=== PATIENT | female | born 2000 | race African-American/Black ===

== ENCOUNTER 2018-08-29 08:38 | Emergency (ER) | payer SELFPAY ==
[~2018-08-29] VITALS: Ht 149.9 cm; Wt 72.6 kg
[2018-08-29] MEDS ORDERED: ACETAMINOPHEN 500 MG TABLET PO ONE (09:00)
--- NOTE | 2018-08-29 10:02 | PHYS DOC ---
Past Medical History Past Medical History: Asthma, Migraines Past Surgical History: No Surgical History Alcohol Use: None Drug Use: None Adult General Chief Complaint Chief Complaint: FLU SYMPTOM HPI HPI Patient is a 17 year old AA female who presents to the emergency room with complaints of generalized body aches, sore throat, and cough with posttussive emesis intermittently for the last week. Patient states that last night she vomited 3 times after coughing. Patient denies any abdominal pain, back pain, dysuria, increased urinary frequency, hematuria, or ear pain. Patient states that she has had some thick white vaginal discharge and vaginal itching after using a new soap. She also reports concerns of a sexually transmitted infection. Review of Systems Review of Systems Constitutional: Reports fever, body aches, fatigue 1 week Eyes: Denies change in visual acuity, redness, or eye pain [] HENT: Reports nasal congestion and sore throat, denies ear pain Respiratory: Denies shortness of breath or wheezing; reports dry cough with posttussive emesis Cardiovascular: No additional information not addressed in HPI [] GI: Denies abdominal pain, or diarrhea; reports posttussive emesis 3 last night [] : Denies dysuria or hematuria; reports vaginal itching and irritation with thick white discharge after using a new soap recently [] Musculoskeletal: Reports body aches Integument: Denies rash or skin lesions [] Neurologic: Denies headache, focal weakness or sensory changes [] Current Medications Current Medications Current Medications Medications (Trade) Dose Ordered Sig/Juanito Start Time Stop Time Status Last Admin Dose Admin Acetaminophen (Tylenol) 1,000 mg 1X ONCE 08/29/18 09:00 08/29/18 09:01 DC 08/29/18 09:06 1,000 MG Azithromycin (Zithromax) 1,000 mg 1X ONCE 08/29/18 10:15 08/29/18 10:16 DC 08/29/18 10:36 1,000 MG Ceftriaxone Sodium (Rocephin Im) 250 mg 1X ONCE 08/29/18 10:15 08/29/18 10:16 DC 08/29/18 10:38 250 MG Sodium Chloride 1,000 ml @ 1,000 mls/hr 1X ONCE 08/29/18 10:15 08/29/18 11:14 DC 08/29/18 10:05 1,000 MLS/HR Allergies Allergies Allergies Coded Allergies Type Severity Reaction Last Updated Verified No Known Drug Allergies 03/10/15 No Physical Exam Physical Exam Constitutional: Well developed, well nourished, no acute distress, non-toxic appearance. [] HENT: Normocephalic, atraumatic, bilateral external ears normal, bilateral TMs normal, mild erythema of posterior pharynx, oropharynx moist, no oral exudates, nose normal. [] Eyes: PERRLA, conjunctiva normal, no discharge. [] Neck: Normal range of motion, no tenderness, supple, no stridor. [] Cardiovascular:Heart rate regular rhythm, no murmur [] Lungs & Thorax: Bilateral breath sounds clear to auscultation [] Pelvic Exam: Electrical Manager present Samantha LOZANO Abdomen: Nontender External Genitalia: Normal Skin Speculum: Normal vaginal mucosa, thick white vaginal discharge, non- friable OS, normal cervical discharge Bimanual: No adnexal masses or tenderness, No CMT Skin: Warm, dry, no erythema, no rash. [] Extremities: No cyanosis, ROM intact, no edema. [] Neurologic: Alert and oriented X 3, normal motor function, normal sensory function, no focal deficits noted. [] Psychologic: Affect normal, judgement normal, mood normal. [] Current Patient Data Vital Signs Vital Signs Date Time Temp Pulse Resp B/P (MAP) Pulse Ox O2 Delivery O2 Flow Rate FiO2 08/29/18 10:30 98 119/77 (91) 99 Room Air 08/29/18 08:43 98.8 18 98.8 Lab Values Laboratory Tests Test 08/29/18 08:54 08/29/18 10:00 Group A Streptococcus Rapid Negative (NEGATIVE) White Blood Count 9.1 x10^3/uL (4.0-11.0) Red Blood Count 5.18 x10^6/uL (3.50-5.40) Hemoglobin 15.2 g/dL (12.0-15.5) Hematocrit 45.2 % (36.0-47.0) Mean Corpuscular Volume 87 fL (79-100) Mean Corpuscular Hemoglobin 29 pg (25-35) Mean Corpuscular Hemoglobin Concent 34 g/dL (31-37) Red Cell Distribution Width 13.8 % (11.5-14.5) Platelet Count 297 x10^3/uL (140-400) Neutrophils (%) (Auto) 66 % (31-73) Lymphocytes (%) (Auto) 26 % (24-48) Monocytes (%) (Auto) 6 % (0-9) Eosinophils (%) (Auto) 2 % (0-3) Basophils (%) (Auto) 1 % (0-3) Neutrophils # (Auto) 6.0 x10^3uL (1.8-7.7) Lymphocytes # (Auto) 2.4 x10^3/uL (1.0-4.8) Monocytes # (Auto) 0.5 x10^3/uL (0.0-1.1) Eosinophils # (Auto) 0.1 x10^3/uL (0.0-0.7) Basophils # (Auto) 0.0 x10^3/uL (0.0-0.2) Sodium Level 140 mmol/L (136-145) Potassium Level 3.7 mmol/L (3.5-5.1) Chloride Level 102 mmol/L (98-107) Carbon Dioxide Level 25 mmol/L (21-32) Anion Gap 13 (6-14) Blood Urea Nitrogen 9 mg/dL (7-20) Creatinine 0.9 mg/dL (0.6-1.0) Estimated GFR (Cockcroft-Gault) 97.6 Glucose Level 92 mg/dL (70-99) Calcium Level 9.1 mg/dL (8.5-10.1) Laboratory Tests 08/29/18 10:00 Laboratory Tests 08/29/18 10:00 Microbiology 08/29/18 Wet Prep - Final, Complete EKG EKG [] Radiology/Procedures Radiology/Procedures [] Course & Med Decision Making Course & Med Decision Making Pertinent Labs and Imaging studies reviewed. (See chart for details) Dx: bacterial vaginosis, vomiting, URI Patient was treated prophylactically with 250 mg of IM Rocephin, and 1 g of PO Zithromax. Patient was instructed to avoid having intercourse until the results of gonorrhea and chlamydia testing were available, patient was notified that these results would not be available for 48 hours. If one or both of these tests is positive, patient needs to refrain from intercourse for approximately 2 weeks following the treatment of any current partners. Prescription written for flagyl. Patient verbalized an understanding of home care, medications, follow-up, and return to ED instructions and was in agreement with the plan of care. [] Dragon Disclaimer Dragon Disclaimer This electronic medical record was generated, in whole or in part, using a voice recognition dictation system. Departure Departure Impression: Primary Impression: Vomiting Additional Impressions: Bacterial vaginosis URI with cough and congestion Disposition: 01 HOME, SELF-CARE Condition: STABLE Referrals: NO PCP (PCP) Patient Instructions: Bacterial Vaginosis, [id number], Nausea and Vomiting, [id number], Upper Respiratory Infection, Adult, [id number] Additional Instructions: Fill the prescription and use as directed. Clear fluids for 24 hours then advance to bland foods such as bananas, rice, toast, and applesauce. No intercourse until you know the results of your STD testing, you were treated prophylactically with zithromax and rocephin in the ER. If one or both of these tests are positive you need to refrain from intercourse for two weeks following the treatment of any current partners. Follow up with your PCP as needed, return to the ER if symptoms worsen. Scripts Metronidazole (FLAGYL) 500 Mg Tablet 1 TAB PO BID for 7 Days, #14 TAB 0 Refills Prov: CHARLI LEVY APRN 08/29/18 Problem Qualifiers Primary Impression: Vomiting Vomiting type: unspecified Vomiting Intractability: non-intractable Nausea presence: without nausea Qualified Codes: R11.11 - Vomiting without nausea CHARLI LEVY APRN Aug 29, 2018 10:02
[2018-08-29] MEDS ORDERED: AZITHROMYCIN 250 MG TABLET. PO ONE (10:15)
[2018-08-29] MEDS ORDERED: IV NORMAL SALINE 1000ML BAG 1,000 ML IV ONE (10:15)
[2018-08-29] MEDS ORDERED: cefTRIAXone IM 250 MG VIAL IM ONE (10:15)
[2018-08-29 10:30] VITALS: BP 119/77
[2018-08-29 10:31] LABS: BASO % 1 % (0-3); EOS # 0.1 x10^3/uL (0.0-0.7); EOS % 2 % (0-3); HEMATOCRIT 45.2 % (36.0-47.0); HEMOGLOBIN 15.2 g/dL (12.0-15.5); LYMPH # 2.4 x10^3/uL (1.0-4.8); LYMPH % 26 % (24-48); MEAN CORPUSCULAR HEMOGLOBIN 29 pg (25-35); MEAN CORPUSCULAR HGB CONC 34 g/dL (31-37); MEAN CORPUSCULAR VOLUME 87 fL (79-100); MONO # 0.5 x10^3/uL (0.0-1.1); MONO % 6 % (0-9); NEUT % 66 % (31-73); PLATELET COUNT 297 x10^3/uL (140-400); RED BLOOD COUNT 5.18 x10^6/uL (3.50-5.40); RED CELL DISTRIBUTION WIDTH 13.8 % (11.5-14.5); WHITE BLOOD COUNT 9.1 x10^3/uL (4.0-11.0)
[2018-08-29 10:39] LABS: CALCIUM 9.1 mg/dL (8.5-10.1); CREATININE 0.9 mg/dL (0.6-1.0); GFR 97.6; POTASSIUM 3.7 mmol/L (3.5-5.1)
[2018-08-29] MEDS ORDERED: METR500T PO (11:03)
[2018-08-30 12:44] LABS: GC PROBE Negative (Negative)
--- NOTE | 2018-08-31 17:52 | VNOTE ---
CALL BACK NOTE CALL BACK Microbiology 08/29/18 Wet Prep - Final, Complete 08/29/18 Throat Culture - Final, Complete 08/29/18 - Final, Complete 08/29/18 - Final, Complete Positive for chlamydia, patient was given results, she was treated. JAYA GOMEZ APRN Aug 31, 2018 17:52
== END 2018-08-29 11:35 | disposition home or self-care (01) ==
LOC: ER 08:38
DX: N76.0 Acute vaginitis (principal); B96.89 Other specified bacterial agents as the cause of diseases classified elsewhere; R11.11 Vomiting without nausea; J02.9 Acute pharyngitis, unspecified; J06.9 Acute upper respiratory infection, unspecified; M79.18 Myalgia, other site; J45.909 Unspecified asthma, uncomplicated; G43.909 Migraine, unspecified, not intractable, without status migrainosus
CPT/HCPCS: 36415; 80048; 85025; 87070; 87491; 87591; 87880; 96360; 96372; 99283; J0696; J7030; Q0111; Q0144; 99284